=== PATIENT | female | born 1965 | race Caucasian/White ===

== ENCOUNTER 2017-04-08 12:26 | Emergency (ER) | payer OTHER ==
[2017-04-08 12:44] VITALS: BP 100/63; PULSE 74; RESP 20; TEMP 98.8; O2SAT 98
--- NOTE | 2017-04-08 13:43 | C.PDOC ---
History Of Present Illness 52-year-old female, PMHx includes pre-diabetes, hypercholesterolemia, asthma, low blood pressure at baseline, presents to the emergency department with complaints of chest pain x3 days. Pain is described as sharp and focal, under the left breast, that is associated with left arm numbness and mild shortness of breath. Patient denies cough, fever, nausea, vomiting, diaphoresis, trauma, recent surgery, leg swelling, hormone use, previous DVT/PE, breast tenderness, nipple discharge or skin changes. No other complaints at this time. Time Seen by Provider: 04/08/17 13:10 Chief Complaint (Nursing): Breast Problem History Per: Patient History/Exam Limitations: no limitations Onset/Duration Of Symptoms: Days Current Symptoms Are (Timing): Still Present Severity: Moderate Past Medical History Reviewed: Historical Data, Nursing Documentation, Vital Signs Vital Signs: Last Vital Signs Temp 98.8 F 04/08/17 12:38 Pulse 74 04/08/17 12:38 Resp 20 04/08/17 12:38 BP 100/63 04/08/17 12:38 Pulse Ox 98 04/08/17 14:28 - Medical History PMH: Asthma, Gastritis, Hypercholesterolemia, Migraine Denies: Diabetes Surgical History: Appendectomy (25 yrs ago) - [facility] Procedures CLOSURE SKIN & SUBCUTANEOUS NEC (07/02/15) Family History: States: No Known Family Hx - Social History Hx Alcohol Use: Yes Hx Substance Use: No - Immunization History Hx Tetanus Toxoid Vaccination: Yes Hx Influenza Vaccination: Yes Hx Pneumococcal Vaccination: No Review Of Systems Except As Marked, All Systems Reviewed And Found Negative. Cardiovascular: Positive for: Chest Pain. Negative for: Edema, Light Headedness Respiratory: Positive for: Shortness of Breath Physical Exam - Physical Exam Appears: No Acute Distress Additional Physical Exam Comments: Constitutional: No acute distress. Head: Normocephalic. Atraumatic. Eyes: PERRL. EOMI ENT: Moist mucous membranes. Neck: Supple. Cardiovascular: Regular rate. Radial pulses 2+ bilaterally. Chest: No tenderness. No nipple discharge. No dimpling of skin. No erythema Respiratory: Clear to auscultation bilaterally. GI: Soft. Nontender. Nondistended. Back: No CVA tenderness. No midline tenderness. Musculoskeletal: No tenderness or swelling of extremities. Skin: No rash. Neurologic: Alert, no focal deficit. ED Course And Treatment - Laboratory Results Result Diagrams: 04/08/17 13:49 04/08/17 13:49 O2 Sat by Pulse Oximetry: 98 Medical Decision Making Medical Decision Making: Impression 52y/o F, comes in with pain under L breast x3 days. Plan: * EKG * CK-MB, CMP, C-Phos, Trop I * CBC * Chest X-Ray * Aspirin * Reassess and Disposition EKG Rate 68bpm Rhythm NSR Interpret Normal [place]. No acute ST/T wave changes CXR no consolidation, PTX, pleural effusion, rib fracture as read by me. Disposition - Disposition Referrals: [facility] [Outside] Disposition: HOME/ ROUTINE Disposition Time: 14:30 Condition: STABLE Instructions: Chest Pain (ED) - POA Core Measure Indicators: Chest Pain - Clinical Impression Clinical Impression: Chest pain - Scribe Statement The provider has reviewed the documentation as recorded by the Scribe (Guy Vasquez) All medical record entries made by the Scribe were at my direction and personally dictated by me. I have reviewed the chart and agree that the record accurately reflects my personal performance of the history, physical exam, medical decision making, and the department course for this patient. I have also personally directed, reviewed, and agree with the discharge instructions and disposition.
[2017-04-08 13:54] LABS: BASO % 0.8 % (0.0-2.0); EOS # 0.1 K/uL (0.0-0.7); EOS % 0.9 % (0.0-4.0); HEMATOCRIT 38.3 % (34.0-47.0); LYMPH % 32.6 % (20.0-40.0); MEAN CELL VOLUME 89.6 fL (81.0-99.0); MEAN CORPUSCULAR HEMOGLOBIN 29.1 pg (27.0-31.0); MEAN CORPUSCULAR HGB CONC 32.5 g/dL (33.0-37.0); MONO # 0.5 K/uL (0.0-0.8); MONO % 8.8 % (0.0-10.0); NRBC % 0.1 % (0.0-2.0); RED CELL DISTRIBUTION WIDTH 13.1 % (11.5-14.5)
[2017-04-08 14:03] LABS: CHLORIDE 103 mmol/L (98-107); POTASSIUM 3.9 mmol/L (3.6-5.2); SODIUM 141 mmol/L (132-148)
[2017-04-08 14:05] LABS: GFR AFRICAN-AMERICAN > 60
[2017-04-08 14:06] LABS: ALB/GLOB RATIO 1.2 (1.0-2.1); ALKALINE PHOSPHATASE 87 U/L (38-126); ALT/SGPT 27 U/L (9-52); AST/SGOT 37 U/L (14-36); BILIRUBIN,TOTAL 0.4 mg/dL (0.2-1.3); BLOOD UREA NITROGEN 11 mg/dL (7-17); CALCIUM 9.5 mg/dl (8.6-10.4); CARBON DIOXIDE 29 mmol/L (22-30); GLUCOSE,RANDOM 90 mg/dL (65-105); TOTAL PROTEIN 8.1 g/dL (6.3-8.3)
--- NOTE | 2017-04-08 14:46 | RAD ---
HISTORY: Chest pain COMPARISON: TECHNIQUE: Chest PA and lateral FINDINGS: LUNGS: No focal infiltrate or effusion. Bibasilar breast and nipple shadows. PLEURA: No significant pleural effusion identified. No pneumothorax apparent. CARDIOVASCULAR: Normal. OSSEOUS STRUCTURES: No significant abnormalities. VISUALIZED UPPER ABDOMEN: Normal. OTHER FINDINGS: None. IMPRESSION: No active disease.
--- NOTE | 2017-04-09 18:29 | CARD ---
APPROVED REPORT EKG Measurement Heart [id number] <Conclusion> Normal sinus rhythm Normal ECG
== END 2017-04-08 14:57 | disposition home or self-care (01) ==
LOC: C.ER 12:26
DX: R07.89 Other chest pain (principal)

== ENCOUNTER 2017-06-11 10:41 | Emergency (ER) | payer OTHER ==
[2017-06-11 10:47] VITALS: TEMP 97.8; O2SAT 98
[2017-06-11] MEDS ORDERED: Naproxen 550 mg Tab PO STA (11:24)
[2017-06-11] MEDS ORDERED: Naproxen 550 mg Tab PO ONE (11:27)
--- NOTE | 2017-06-11 11:46 | RAD ---
HISTORY: productive cough COMPARISON: 04/08/2017 TECHNIQUE: Chest PA and lateral FINDINGS: LUNGS: No active pulmonary disease. PLEURA: No significant pleural effusion identified. No pneumothorax apparent. CARDIOVASCULAR: Normal. OSSEOUS STRUCTURES: No significant abnormalities. VISUALIZED UPPER ABDOMEN: Normal. OTHER FINDINGS: None. IMPRESSION: No active disease.
--- NOTE | 2017-06-11 12:13 | C.PDOC ---
History Of Present Illness 52 yr old female with PMHx of asthma presents to the ER for evaluation of productive cough for the past 1 week. Patient reports difficulty in getting phlegm out as well as occasional wheezing. He is also c/o sharp left sided pleuritic chest pain. Patient denies fever, SOB, palpitations, neck pain or rashes. Time Seen by Provider: 06/11/17 11:11 Chief Complaint (Nursing): Cough, Cold, Congestion History Per: Patient History/Exam Limitations: no limitations Onset/Duration Of Symptoms: Days (1 week) Associated Symptoms: Cough, Sputum Severity: Mild Past Medical History Reviewed: Historical Data, Nursing Documentation, Vital Signs Vital Signs: Last Vital Signs Temp 97.8 F 06/11/17 10:44 Pulse 81 06/11/17 12:33 Resp 16 06/11/17 12:33 BP 129/81 06/11/17 12:33 Pulse Ox 98 06/11/17 12:33 - Medical History PMH: Asthma, Gastritis, Hypercholesterolemia, Migraine Surgical History: Appendectomy (25 yrs ago) - [facility] Procedures CLOSURE SKIN & SUBCUTANEOUS NEC (07/02/15) Family History: States: No Known Family Hx - Social History Hx Alcohol Use: Yes Hx Substance Use: No - Immunization History Hx Tetanus Toxoid Vaccination: Yes Hx Influenza Vaccination: Yes Hx Pneumococcal Vaccination: No Review Of Systems Except As Marked, All Systems Reviewed And Found Negative. Constitutional: Negative for: Fever, Chills Cardiovascular: Negative for: Palpitations Respiratory: Positive for: Cough (Productive ), Pleuritic Pain, Wheezing. Negative for: Shortness of Breath Gastrointestinal: Negative for: Nausea, Vomiting Musculoskeletal: Negative for: Neck Pain Skin: Negative for: Rash Physical Exam - Physical Exam Appears: Well, Non-toxic, No Acute Distress Skin: Normal Color, Warm, Dry, No Rash Eye(s): bilateral: Normal Inspection Ear(s): Bilateral: Normal Nose: Normal Oral Mucosa: Moist Throat: Normal, No Erythema, No Exudate Neck: Normal, Normal ROM Chest: Symmetrical, No Tenderness, No Ecchymosis, No Subcutaneous Emphysema Cardiovascular: Rhythm Regular Respiratory: Normal Breath Sounds, No Rales, No Rhonchi, No Wheezing Extremity: Normal ROM, No Pedal Edema, No Calf Tenderness, No Swelling Neurological/Psych: Oriented x3 ED Course And Treatment O2 Sat by Pulse Oximetry: 98 (RA) Pulse Ox Interpretation: Normal - Radiology CXR: Interpreted by Me, Viewed By Me CXR Interpretation: Yes: No Acute Disease. No: Infiltrates Progress Note: PLAN: CXR ordered and reviewed. Patient given PO naprosyn. No wheezing noted on ausculation. Reevaluation Time: 12:20 Reassessment Condition: Improved (On reassessment, patient's pain has improved and he is feeling better. CXR (-) for intiltrates. Patient given Rxs for tessalon, guafenesin, and albuterol inhaler. He was instructed to follow up with PMD/clinic in 1-2 days, and he understands he should return to ED if symptoms worsen.) Disposition Counseled Patient/Family Regarding: Diagnosis, Need For Followup, Rx Given - Disposition Referrals: [facility] [Outside] Disposition: HOME/ ROUTINE Disposition Time: 12:20 Condition: STABLE Additional Instructions: SEGUIMIENTO CON CANO MDICO EN 1-2 MERINO USE MEDICAMENTOS SEGN LO DIRIGIDO DEVUELVA A LA TRUONG DE EMERGENCIA SI LOS SNTOMAS EMPEORARAN Prescriptions: Albuterol HFA [Ventolin HFA 90 mcg/actuation (8 g)] 0.09 mg IH Q4 PRN #1 puff PRN Reason: Wheezing Benzonatate [Tessalon Perles] 100 mg PO BID PRN #15 sgl PRN Reason: Cough Guaifenesin 400 mg PO Q6 PRN #20 tablet PRN Reason: COUGH/PHLEGM Instructions: Upper Respiratory Infection (ED), Viral Syndrome (ED) Forms: [facility] (Portuguese), Work Excuse Print Language: WELSH - POA Present On Arrival: None - Clinical Impression Clinical Impression: Upper respiratory infection, Viral disease, Chest pain, pleuritic - Scribe Statement The provider has reviewed the documentation as recorded by the Camrynibsamantha Buenrostro Provider Attestation: All medical record entries made by the Camrynibsamantha were at my direction and personally dictated by me. I have reviewed the chart and agree that the record accurately reflects my personal performance of the history, physical exam, medical decision making, and the department course for this patient. I have also personally directed, reviewed, and agree with the discharge instructions and disposition.
[2017-06-11 12:34] VITALS: BP 129/81; PULSE 81; RESP 16
== END 2017-06-11 12:33 | disposition home or self-care (01) ==
LOC: C.ER 10:41
DX: J06.9 Acute upper respiratory infection, unspecified (principal); B34.9 Viral infection, unspecified

== ENCOUNTER 2017-10-04 08:24 | Emergency (ER) | payer OTHER ==
[2017-10-04 08:58] VITALS: BP 103/70; PULSE 72; RESP 20; TEMP 97.8; O2SAT 98
[2017-10-04] MEDS ORDERED: Lidocaine 5% Patch TD ONE (09:44)
[2017-10-04] MEDS ORDERED: Lidocaine 5% Patch TD STA (09:45)
--- NOTE | 2017-10-04 09:54 | C.PDOC ---
History Of Present Illness ACUTE EXAC R ELBOW/R WRIST PAIN X 1 WEEK. ELBOW PAIN WORSE W EXTENSION, RELIEVES W FLEXION. LOCALIZED. R WRIST PAIN = TOP PART, WORSE W MAKING A FIST BUT NO PAIN W WRIST ROM. NO ASSOC WEAK/NUMB. NO TRAUMA. PS INTERMIT PAIN IN AREAS SINCE INJURY YEAR AGO. PS DX "TENDON INJURY", NO FX. FU BY ORTHO FOR PREV PAIN EPISODES, TOLD WAS DUE TO OVERUSE. LIMITED RELIEF W MOTRIN 400 MG PRN EXAM MILD DIST NONTOXIC EXT RUE +GEN TEND R OLECRANON AREA WORSE W EXTENSION. FULL SUPINATION WO DIFF. NO DEFORM. MIN LOCAL SWELLING. R WRIST NON TEND, NO SWELL. FULL ROM R WRIST WO DIFF. +REPRODUC PAIN W R HAND SYSTEMS MGR. NO TEND DEF NEURO NO MOTOR DEF SKIN NEG MDM PT REQUESTING NOTE FOR RESTRICTED USE. ADVISED NEED PMD/ORTHO FU FOR CANCELLATION CLERK DISABLITY NOTE. SLING, LIDODERM, NSAIDS, ICE. Time Seen by Provider: 10/04/17 09:11 Chief Complaint (Nursing): Upper Extremity Problem/Injury History Per: Patient History/Exam Limitations: no limitations Onset/Duration Of Symptoms: Days (Acute exacerbation for 1 week) Current Symptoms Are (Timing): Still Present Past Medical History Reviewed: Historical Data, Nursing Documentation, Vital Signs Vital Signs: Last Vital Signs Temp 97.8 F 10/04/17 08:55 Pulse 72 10/04/17 08:55 Resp 20 10/04/17 08:55 BP 103/70 10/04/17 08:55 Pulse Ox 98 10/05/17 10:13 - Medical History PMH: Asthma, Gastritis, Hypercholesterolemia, Migraine Surgical History: Appendectomy (25 yrs ago) - [facility] Procedures CLOSURE SKIN & SUBCUTANEOUS NEC (07/02/15) Family History: States: No Known Family Hx - Social History Hx Alcohol Use: Yes Hx Substance Use: No - Immunization History Hx Tetanus Toxoid Vaccination: Yes Hx Influenza Vaccination: Yes Hx Pneumococcal Vaccination: No Review Of Systems Except As Marked, All Systems Reviewed And Found Negative. Musculoskeletal: Positive for: Other ((+) Right elbow/wrist pain). Negative for : Neck Pain, Shoulder Pain, Arm Pain, Back Pain Neurological: Negative for: Weakness, Numbness Physical Exam - Physical Exam Appears: Non-toxic, In Acute Distress (Mild) Skin: Warm, Dry, No Rash, Other (RUE - Skin intact. No erythema.) Head: Atraumatic, Normacephalic Oral Mucosa: Moist Neck: Normal, Normal ROM, Supple Extremity: Normal ROM (Full ROM of the right wrist w/o difficulty), Capillary Refill (<2 secs), No Deformity, Other (RUE - General tenderness to the right olecranon area, worse with extension. Full supination w/o difficulty. Minimal local swelling. Reproducible pain with right handgrip.) Neurological/Psych: Oriented x3, Normal Speech, Normal Motor, Normal Sensation ED Course And Treatment O2 Sat by Pulse Oximetry: 98 (RA) Pulse Ox Interpretation: Normal Medical Decision Making Medical Decision Making: PLAN: * Lidoderm TD * Toradol IM NOTE: PT REQUESTING NOTE FOR RESTRICTED USE. ADVISED NEED PMD/ORTHO FU FOR CANCELLATION CLERK DISABILITY NOTE. SLING, LIDODERM, NSAIDS, ICE. Disposition Counseled Patient/Family Regarding: Diagnosis, Need For Followup, Rx Given - Disposition Referrals: [facility] [Outside] [facility] [Outside] Disposition: HOME/ ROUTINE Disposition Time: 09:55 Condition: IMPROVED Additional Instructions: APLICA PARCHE AL RUBEN AFECTADA. MAX 3 PARCHES A LA VEZ. RETIRE EL PATCH 12 HORAS DESPUS DE LA APLICACIN INICIAL. ALTERNATIVAS 12 HORAS ACTIVADAS, 12 HORAS DESACTIVADAS. Prescriptions: Lidocaine 5% [Lidoderm] 1 ea TD PRN PRN #10 patch PRN Reason: Pain, Moderate (4-7) Instructions: Tendinitis (ED) Forms: [facility] (Lebanese), Work Excuse Print Language: YORUBA - Clinical Impression Clinical Impression: Elbow tendonitis, Wrist tendonitis - Scribe Statement The provider has reviewed the documentation as recorded by the Camrynibsamantha Buenrostro Provider Attestation: All medical record entries made by the Camrynibsamantha were at my direction and personally dictated by me. I have reviewed the chart and agree that the record accurately reflects my personal performance of the history, physical exam, medical decision making, and the department course for this patient. I have also personally directed, reviewed, and agree with the discharge instructions and disposition. Orthopedic Care Application Of:: Sling
== END 2017-10-04 10:04 | disposition home or self-care (01) ==
LOC: C.ER 08:24
DX: M77.8 Other enthesopathies, not elsewhere classified (principal)
CPT/HCPCS: 96372; 99285; J1885

== ENCOUNTER 2018-03-15 11:08 | Emergency (ER) | payer OTHER ==
[2018-03-15 11:31] VITALS: O2SAT 98
[2018-03-15] MEDS ORDERED: Naproxen 550 mg Tab PO STA (11:59)
--- NOTE | 2018-03-15 12:30 | C.PDOC ---
History Of Present Illness 52 yo female c/o right elbow pain since yesterday. 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 States the pain starts at the elbow and radiates down the arm. H/o fracture to the elbow last year. Took ibuprofen at 5am. Denies trauma , swelling , fever, change in sensation, shoulder or chest pain. 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[employer]) History/Exam Limitations: no limitations Onset/Duration Of Symptoms: Days (yesterday) Current Symptoms Are (Timing): Still Present Past Medical History Vital Signs: Last Vital Signs Temp 97.9 F 03/15/18 13:35 Pulse 68 03/15/18 13:35 Resp 20 03/15/18 13:35 BP 116/70 03/15/18 13:35 Pulse Ox 98 03/15/18 13:35 - Medical History PMH: Asthma, Gastritis, Hypercholesterolemia, Migraine Denies: Diabetes Surgical History: Appendectomy (25 yrs ago) - [facility] Procedures CLOSURE SKIN & SUBCUTANEOUS NEC (07/02/15) Family History: States: Unknown Family Hx - Social History Hx Alcohol Use: Yes Hx Substance Use: No - Immunization History Hx Tetanus Toxoid Vaccination: Yes Hx Influenza Vaccination: Yes Hx Pneumococcal Vaccination: No Review Of Systems Except As Marked, All Systems Reviewed And Found Negative. Physical Exam - Physical Exam Appears: Well, Non-toxic, No Acute Distress Skin: Normal Color, Warm, Dry Head: Atraumatic, Normacephalic Eye(s): bilateral: Normal Inspection, EOMI Nose: Normal Oral Mucosa: Moist Neck: Normal, Normal ROM, Supple Chest: Symmetrical Respiratory: No Accessory Muscle Use Back: Normal Inspection Extremity: Normal ROM, Tenderness (ttp to the lateral epicondyle), Capillary Refill (<2 sec), Swelling Extremity: Bilateral: Normal Color And Temperature, Normal ROM Pulses: Left Radial: Normal, Right Radial: Normal Neurological/Psych: Oriented x3, Normal Speech, Normal Motor, Normal Sensation ED Course And Treatment O2 Sat by Pulse Oximetry: 98 - Other Rad Elbow xr X-Ray: Interpreted by Me, Viewed By Me Interpretation: no fx or dislocation Progress Note: Rajinder wrap applied and sling. Instructed RICE and follow up with ortho in 1-2 days. Disposition - Disposition Referrals: Darvin Ewing III, MD [Staff Provider] - Disposition: HOME/ ROUTINE Disposition Time: 12:28 Condition: STABLE Additional Instructions: Rest, ice and elevate the area. Follow up with your bone doctor in 1-2 days. Descanse, hiele y eleve el ino. Marlon un seguimiento con telles mdico de huesos en 1-2 martin. Prescriptions: Naproxen [Naprosyn] 1 tab PO BID PRN #20 tab PRN Reason: Pain Instructions: Tendonitis (DC) Forms: [facility] (French), Work Excuse Print Language: CITIZEN OF [place] - Clinical Impression Clinical Impression: Elbow tendonitis
[2018-03-15] MEDS ORDERED: Naproxen 550 mg Tab PO ONE (12:37)
--- NOTE | 2018-03-15 13:20 | RAD ---
PROCEDURE: Radiographs of the right elbow. HISTORY: h/o fx, pain COMPARISON: No prior. FINDINGS: BONES: Normal. No fracture. JOINTS: Normal. No osteoarthritis. SOFT TISSUES: Normal. JOINT EFFUSION: None. OTHER FINDINGS: None. IMPRESSION: Unremarkable radiographs of the right elbow.
[2018-03-15 13:36] VITALS: BP 116/70; PULSE 68; RESP 20; TEMP 97.9
== END 2018-03-15 13:36 | disposition home or self-care (01) ==
LOC: C.ER 11:08
DX: M77.9 Enthesopathy, unspecified (principal)

== ENCOUNTER 2018-03-18 16:28 | Emergency (ER) | payer OTHER ==
[2018-03-18 17:09] VITALS: BP 96/57; PULSE 62; RESP 20; TEMP 98.6; O2SAT 100
--- NOTE | 2018-03-18 17:59 | C.PDOC ---
History Of Present Illness 7o y/o female presents to the ER complaining of right elbow pain. Patient states that she was seen in [facility] ER on 03/15/18 for right elbow injury and she was diagnosed with tendonitis. Patient was referred to but she was not able to see him because of insurance issues. Patient decided to visit the ER because she is still having pain and would like to take few days off from work. Time Seen by Provider: 03/18/18 17:12 Chief Complaint (Nursing): Upper Extremity Problem/Injury History Per: Patient History/Exam Limitations: no limitations Onset/Duration Of Symptoms: Days Current Symptoms Are (Timing): Still Present Severity: Moderate Past Medical History Reviewed: Historical Data, Nursing Documentation, Vital Signs Vital Signs: Last Vital Signs Temp 98.6 F 03/18/18 17:05 Pulse 62 03/18/18 17:05 Resp 20 03/18/18 17:05 BP 96/57 L 03/18/18 17:05 Pulse Ox 100 03/18/18 21:38 - Medical History PMH: Asthma, Gastritis, Hypercholesterolemia, Migraine Denies: Diabetes Surgical History: Appendectomy (25 yrs ago) - [facility] Procedures CLOSURE SKIN & SUBCUTANEOUS NEC (07/02/15) Family History: States: No Known Family Hx - Social History Hx Alcohol Use: Yes Hx Substance Use: No - Immunization History Hx Tetanus Toxoid Vaccination: Yes Hx Influenza Vaccination: Yes Hx Pneumococcal Vaccination: No Review Of Systems Except As Marked, All Systems Reviewed And Found Negative. Musculoskeletal: Positive for: Arm Pain (right elbow pain) Neurological: Negative for: Weakness, Numbness Physical Exam - Physical Exam Appears: Non-toxic, No Acute Distress Skin: Normal Color, Warm, Dry Head: Atraumatic, Normacephalic Eye(s): bilateral: Normal Inspection Nose: Normal Oral Mucosa: Moist Neck: Supple Chest: Symmetrical Cardiovascular: Rhythm Regular Respiratory: Normal Breath Sounds, No Rales, No Rhonchi, No Wheezing Extremity: Normal ROM, No Swelling (right elbow), Other (right elbow: (-) erythema, (-) warmth) Neurological/Psych: Oriented x3, Normal Speech ED Course And Treatment O2 Sat by Pulse Oximetry: 100 (RA) Pulse Ox Interpretation: Normal Progress Note: Rajinder Wrap has been applied by traffic signal technician. Patient has been discharged with a work note for 3 days. Patient has been instructed to follow up with PMD and orthopedist in 1-2 days. Disposition - Disposition Referrals: [facility] [Outside] Disposition: HOME/ ROUTINE Disposition Time: 17:57 Condition: STABLE Additional Instructions: Follow up with PMD and Orthopedist within 1-2 days. Return to ED if feel worse. 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 - Scribe Statement The provider has reviewed the documentation as recorded by the Camrynibsamantha Wills Provider Attestation All medical record entries made by the Camrynibe were at my direction and personally dictated by me. I have reviewed the chart and agree that the record accurately reflects my personal performance of the history, physical exam, medical decision making, and the department course for this patient. I have also personally directed, reviewed, and agree with the discharge instructions and disposition.
== END 2018-03-18 18:13 | disposition home or self-care (01) ==
LOC: C.ER 16:28
DX: S59.901D Unspecified injury of right elbow, subsequent encounter (principal); X58.XXXD Exposure to other specified factors, subsequent encounter

== ENCOUNTER 2018-09-18 10:43 | Emergency (ER) | payer SELFPAY ==
--- NOTE | 2018-09-18 10:55 | C.PDOC ---
History Of Present Illness Patient is a 53 y/o F with PMHx of migraines, gastritis, and HLD who presents today for 3 days of low back pain. 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 Two days ago patient was doing a lot of heavy lifting and started having low back pain. Patient rates the pain 8/10. Patient says taking 2 Advil and rest helps relieve the pain. Bending forward and trying to lift anything worsens the pain. Patient denies any incontinence, saddle anesthesia, radiation of pain into the legs, numbness, or tingling. <Nava Feliz - Last Filed: 09/18/18 11:37> <Saadia Gutierrez - Last Filed: 09/18/18 10:48> History/Exam Limitations: no limitations Onset/Duration Of Symptoms: Days, Waxing/Waning Current Symptoms Are (Timing): Still Present Quality Of Discomfort: Aching Severity: Moderate Pain Scale Rating Of: 8 Associated Symptoms: None. denies: Incontinence, New Weakness, New Numbness Exacerbating Factor(s): Movement Additional History Per: Patient <Nava Feliz - Last Filed: 09/18/18 11:37> Time Seen by Provider: 09/18/18 10:48 Chief Complaint (Nursing): Back Pain Past Medical History - Medical History PMH: Asthma, Gastritis, Hypercholesterolemia, Migraine Denies: Diabetes Surgical History: Appendectomy (25 yrs ago) - [facility] Procedures CLOSURE SKIN & SUBCUTANEOUS NEC (07/02/15) Family History: States: Unknown Family Hx - Social History Hx Alcohol Use: Yes Hx Substance Use: No - Immunization History Hx Tetanus Toxoid Vaccination: Yes Hx Influenza Vaccination: Yes Hx Pneumococcal Vaccination: No <Saadia Gutierrez - Last Filed: 09/18/18 10:48> Vital Signs: Last Vital Signs Temp 97.5 F L 09/18/18 10:47 Pulse 85 09/18/18 10:47 Resp 18 09/18/18 10:47 BP 101/68 09/18/18 10:47 Pulse Ox 100 09/18/18 10:47 - [facility] Procedures CLOSURE SKIN & SUBCUTANEOUS NEC (07/02/15) <Nava Feliz - Last Filed: 09/18/18 11:37> Review Of Systems Constitutional: Negative for: Fever, Weakness Gastrointestinal: Negative for: Nausea, Vomiting, Diarrhea, Constipation Genitourinary: Negative for: Incontinence Musculoskeletal: Positive for: Back Pain Neurological: Negative for: Weakness, Numbness <Nava Feliz - Last Filed: 09/18/18 11:37> Physical Exam - Physical Exam Appears: Non-toxic, No Acute Distress Skin: Normal Color Cardiovascular: Rhythm Regular Respiratory: Normal Breath Sounds Back: Normal Inspection, No CVA Tenderness, Vertebral Tenderness, No Muscle Spasm Extremity: Normal ROM, No Tenderness Neurological/Psych: Oriented x3, Normal Motor Gait: Steady <Nava Feliz - Last Filed: 09/18/18 11:37> ED Course And Treatment O2 Sat by Pulse Oximetry: 100 (RA) Pulse Ox Interpretation: Normal <Nava Feliz - Last Filed: 09/18/18 11:37> Medical Decision Making Medical Decision Making: Patient stable for discharge home. Patient explained to take Naprosyn or over the counter Motrin or Tylenol. Patient to not lift anything more than 10 lbs for 1 week. Patient to rest back and use proper heavy lifting techniques to reduce strain on back. <Nava Feliz - Last Filed: 09/18/18 11:37> Disposition <Saadia Gutierrez - Last Filed: 09/18/18 10:48> - Disposition Disposition Time: 11:31 <Nava Feliz - Last Filed: 09/18/18 11:37> - Disposition Disposition: HOME/ ROUTINE Condition: GOOD Prescriptions: Naproxen [Naprosyn] 500 mg PO BID #30 tab Forms: [employer] (Yemeni), Work Excuse - Clinical Impression Clinical Impression: Lumbar sprain
[2018-09-18 11:51] VITALS: BP 102/71; PULSE 66; RESP 20; TEMP 97.7; O2SAT 97
== END 2018-09-18 11:58 | disposition home or self-care (01) ==
LOC: C.ER 10:43
DX: S33.5XXA Sprain of ligaments of lumbar spine, initial encounter (principal); X50.9XXA Other and unspecified overexertion or strenuous movements or postures, initial encounter

== ENCOUNTER 2018-10-17 10:45 | Emergency (ER) | payer SELFPAY ==
[2018-10-17 10:57] VITALS: BP 105/68; PULSE 82; RESP 18; TEMP 97.9; O2SAT 98
[2018-10-17] MEDS ORDERED: Naproxen 550 mg Tab PO STA (11:21)
--- NOTE | 2018-10-17 11:24 | C.PDOC ---
History Of Present Illness 53 year old female with a 1.5 year history of right elbow pain d/t injury presents to the emergency department with complaints of pain to the right elbow status-post receiving a steroid injection to the site. Patient states that she did not call the doctor who gave her the injection. She denies fever, chills, nausea, vomiting, weakness, paresthesia, erythema and swelling. Patient states that she has a prescription for Naproxen which she is unable to obtain due to not having insurance. She denies any new injury. Time Seen by Provider: 10/17/18 11:09 Chief Complaint (Nursing): Upper Extremity Problem/Injury History Per: Patient History/Exam Limitations: no limitations Onset/Duration Of Symptoms: Days (1) Current Symptoms Are (Timing): Still Present Quality: "Pain" Past Medical History Reviewed: Historical Data, Nursing Documentation, Vital Signs Vital Signs: Last Vital Signs Temp 97.9 F 10/17/18 10:50 Pulse 82 10/17/18 10:50 Resp 18 10/17/18 10:50 BP 105/68 10/17/18 10:50 Pulse Ox 98 10/17/18 10:50 - Medical History PMH: Asthma, Gastritis, Hypercholesterolemia, Migraine Denies: Diabetes Surgical History: Appendectomy - [facility] Procedures CLOSURE SKIN & SUBCUTANEOUS NEC (07/02/15) Family History: States: No Known Family Hx - Social History Hx Alcohol Use: No Hx Substance Use: No - Immunization History Hx Tetanus Toxoid Vaccination: No Hx Influenza Vaccination: No Hx Pneumococcal Vaccination: No Review Of Systems Except As Marked, All Systems Reviewed And Found Negative. Constitutional: Negative for: Fever, Chills Gastrointestinal: Negative for: Nausea, Vomiting Musculoskeletal: Positive for: Arm Pain (right elbow). Negative for: Other (swelling to right elbow) Skin: Negative for: Other (erythema ) Neurological: Negative for: Weakness, Numbness Physical Exam - Physical Exam Appears: Well, Non-toxic, No Acute Distress Skin: Normal Color, Warm, Dry, Other (skin intact) Extremity: Normal ROM (Full range of motion to the right upper extremities), Tenderness (to palpation at the right elbow), Capillary Refill, No Swelling Pulses: Right Radial: Normal Neurological/Psych: Oriented x3, Normal Motor, Normal Sensation ED Course And Treatment O2 Sat by Pulse Oximetry: 98 (RA) Pulse Ox Interpretation: Normal Medical Decision Making Medical Decision Making: Patient given Naproxen 550mg PO in the ED, patient instructed to f/u with her doctor who gave her the injection. Patient is clear for discharge. Disposition Counseled Patient/Family Regarding: Diagnosis, Need For Followup - Disposition Disposition: HOME/ ROUTINE Disposition Time: 11:23 Condition: STABLE Additional Instructions: BRIAN HENDERSON, thank you for letting us take care of you today. Your provider was Saadia Gutierrez MD and you were treated for RT SHOULDER PAIN. The emergency medical care you received today was directed at your acute symptoms. If you were prescribed any medication, please fill it and take as directed. It may take several days for your symptoms to resolve. Return to the Emergency Department if your symptoms worsen, do not improve, or if you have any other problems. Please contact your doctor in 1-2 days for a follow up appointment. Bring any paperwork you were given at discharge with you along with any medications you are taking to your follow up visit. Our treatment cannot replace ongoing medical care by a primary care provider outside of the emergency department. Thank you for allowing the [facility] team to be part of your care today. Instructions: Chronic Pain (DC), Tendonitis (DC) Forms: Gen Discharge Inst [place], [facility] ([place]) - POA Present On Arrival: None - Clinical Impression Clinical Impression: Chronic pain, Elbow pain, chronic - Scribe Statement The provider has reviewed the documentation as recorded by the Scribe (Obie Patelqvi) Provider Attestation: All medical record entries made by the Scribe were at my direction and personally dictated by me. I have reviewed the chart and agree that the record accurately reflects my personal performance of the history, physical exam, medical decision making, and the department course for this patient. I have also personally directed, reviewed, and agree with the discharge instructions and disposition.
[2018-10-17] MEDS ORDERED: Naproxen 550 mg Tab PO ONE (11:27)
== END 2018-10-17 11:37 | disposition home or self-care (01) ==
LOC: C.ER 10:45
DX: G89.29 Other chronic pain (principal); M25.521 Pain in right elbow; E78.00 Pure hypercholesterolemia, unspecified

== ENCOUNTER 2018-11-22 10:49 | Outpatient (CLI) | payer SELFPAY | END 2018-11-22 10:50 | disposition home or self-care (01) | LOC: C.RADH 10:49 ==

== ENCOUNTER 2019-03-10 08:30 | Outpatient (CLI) | payer SELFPAY | END 2019-03-10 08:31 | disposition home or self-care (01) | LOC: C.MRIC 08:30 | DX: M54.2 Cervicalgia (principal) ==